=== PATIENT | female | born 1950 | race Caucasian/White ===

== ENCOUNTER 2020-07-31 11:04 | Inpatient (IN) | payer MEDICARE, OTHER, SELFPAY ==
[2020-07-31] VITALS (7 sets, daily range): BP systolic 140–182; BP diastolic 70–103; PULSE 69–95; RESP 16–19; TEMP 36.5–37; O2SAT 91–98; BMI 20.7
--- NOTE | 2020-07-31 11:29 | XR_ITS ---
WS: [id number] Exam: XR femur LT min 2V* [id number] Date/Time of Exam: 07/31/2020 12:00 PM Reason For Exam: fall There is a comminuted intertrochanteric fracture of the left hip. The remaining aspects of the femur are intact. Soft tissues are unremarkable. XR/XR femur LT min 2V* [id number] IMPRESSION: 1. Comminuted intertrochanteric fracture of the left femur. No other femoral fr actures were noted.
--- NOTE | 2020-07-31 11:29 | XR_ITS ---
WS: [id number] Exam: XR foot LT min 3V* [id number] Date/Time of Exam: 07/31/2020 12:00 PM Reason For Exam: fall No acute fracture or dislocation. Moderate DJD at the first MP joint. No radiopaque foreign bodies ar e identified. Degenerative changes in the midfoot joints. XR/XR foot LT min 3V* [id number] IMPRESSION: 1. Degenerative changes. No fracture or dislocation.
--- NOTE | 2020-07-31 11:29 | XR_ITS ---
WS: [id number] Exam: XR hip LT 2-3V wo/w pel* [id number] Date/Time of Exam: 07/31/2020 12:00 PM Reason For Exam: fall There is a comminuted intertrochanteric fracture of the left hip. The lesser trochanter is fractured. No dislocation noted. Mild degenerative change of the joint compartment. XR/XR hip LT 2-3V wo/w pel* [id number] IMPRESSION: 1. Comminuted intertrochanteric fracture of the left hip.
--- NOTE | 2020-07-31 11:30 | XR_ITS ---
WS: [id number] Exam: XR chest 1V portable [id number] Date/Time of Exam: 07/31/2020 12:00 PM Reason For Exam: hip fracture Comparison 04/02/2018. The lungs are clear and fully expanded. Normal cardiomediastinal structures and bony elements. Scatte red calcified granulomas. XR/XR chest 1V portable [id number] IMPRESSION: 1. No acute cardiopulmonary finding. No change.
--- NOTE | 2020-07-31 11:30 | ECG_ITS ---
[facility] Test Date: 2020-07-31 Pat Name: Zoila García Department: Room: Gender: Female Construction Inspector: : [id number] Requested By: Amy Irby Order Number: [id number] Latoya MD: Shira Charlton M.D. Measurements Intervals [place] Rate: 64 P: 81 GA: 170 QRS: 9 QRSD: 78 T: 42 QT: 373 QTc: 385 Interpretive Statements SINUS RHYTHM WITH SINUS ARRHYTHMIA No previous ECG available for comparison Electronically Signed On 07-31-2020 13:25:02 MANAGER WOMEN by Shira Charlton M.D. [id number]
[2020-07-31 11:46] LABS: Basophils # 0.1 10^3/uL (0.0-0.1); Basophils % 0.5 %; Eosinophils # 0.1 10^3/uL (0.0-0.8); Eosinophils % 1.5 %; Hematocrit 45.7 % (37.0-47.0); Hemoglobin 14.6 g/dL (11.5-15.3); Lymphocytes # 2.4 10^3/uL (0.8-4.8); Lymphocytes % 25.3 %; Mean Corpuscular HGB Conc 31.9 g/dL (30.0-36.0); Mean Corpuscular Hemoglobin 28.4 pg (28.0-34.0); Mean Corpuscular Volume 88.9 fL (81-99); Mean Platelet Volume 10.3 fL (7.4-10.4); Monocytes # 0.8 10^3/uL (0.2-0.9); Monocytes % 8.7 %; Neutrophils # 5.92 10^3/uL (1.8-7.7); Neutrophils % 63.3 %; Nucleated Red Blood Cells % 0 %; Platelet Count 558 10^3/cmm (130-400); Red Blood Count 5.14 10^6/uL (4.1-5.3); Red Cell Distribution Width 13.5 % (12.1-15.1); White Blood Count 9.4 10^3/uL (4.0-10.0)
[2020-07-31 12:05] LABS: Alanine Aminotransferase 33 U/L (0-33); Albumin Level 4.4 g/dL (3.5-5.2); Alkaline Phosphatase 131 IU/L (35-105); Aspartate Amino Transferase 38 U/L (0-32); Blood Urea Nitrogen 13 mg/dL (8-23); Calcium 10.2 mg/dL (8.5-10.5); Carbon Dioxide 25 mmol/L (22-29); Chloride 94 mmol/L (98-107); Creatinine Clr Calc Pharmacy 54.9642; Globulin 2.4 g/dL (1.3-4.6); Glucose 95 mg/dL (65-115); INR 0.97 (0.8-1.2); Osmolality Calculated 272 mOsm/kg (285-295); Sodium 131 mmol/L (136-145); Total Bilirubin 0.3 mg/dL (0.15-1.2); Total Protein 6.8 g/dL (6.6-8.7)
[2020-07-31] MEDS: morphine 4 mg/mL SDV 1 mL IVP ×2 (12:11→15:32)
[2020-07-31 12:13] LABS: Anion Gap 16.9 (5-19); Potassium 4.9 mmol/L (3.5-5.1)
--- NOTE | 2020-07-31 13:18 | P.CONIM_ITS ---
Providers/Reason For Consult Consulting Physican/Specialty*: hospitalist Reason for Consult*: left hip fracture Primary Care Provider: John Knapp DO History of Present Illness History of Present Illness Zoila García is a 70 year old female who was working in her garden fell and sustained a left hip fracture. Patient immediately felt pain when she fell localized to her left hip nothing made it better or worse she arrived at the ER x-rays were taken which showed a left intertrochanteric hip fracture Review of Systems Narrative: General ROS: negative for weight changes, fever ENT ROS: negative for nasal congestion, drainage or bleeding, sore throat, dysphagia or ear pain Eyes: PERRL Hematological and Lymphatic ROS: negative for swollen glands or abnormal bleeding Endocrine ROS: negative for polyuria/polydpsia or new changes in weight Respiratory ROS: negative for cough, shortness of breath, or wheezing Cardiovascular ROS: negative for chest pain or dyspnea on exertion Gastrointestinal ROS: negative for reflux, abdominal pain, change in bowel habits, or black or bloody stools Musculoskeletal ROS: negative for back pain, neck pain, or joint pain or swelling except for current problem Neurological ROS: negative for TIA or stoke symptoms Skin: no rashes Meds/Allergies Home Medications and Allergies Allergies Allergy/AdvReac Type Severity Reaction Status Date / Time oxycodone Allergy ADR-Vomitin Verified 07/31/20 11:14 g PFSH Acute PFSH: Medical History (Updated 07/31/20 @ 12:57 by Dinesh Rivera MD) HLD (hyperlipidemia) HTN (hypertension) Vitals/I&O/Wt Last Vital Signs Temp 97.7 F 07/31/20 11:05 Pulse 88 07/31/20 11:14 Resp 18 07/31/20 11:14 BP 168/88 07/31/20 11:14 Pulse Ox 97 07/31/20 11:14 Weight last 48 hrs Weight 121 lb Physical Exam Narrative: EXAM NARRATIVE: Left leg shortened and externally rotated. Neurovascular intact sensation is intact. No pain anywhere else except for the left hip. A&P Additional A&P Information Left IT fracture. Plan is to do a hip nail in the a.m. 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
--- NOTE | 2020-07-31 14:48 | P.HP_ITS ---
Providers/Chief Complaint Primary Care Provider: John Knapp DO Chief Complaint: l hip pain/ l ankle pain post fall History of Present Illness Very pleasant 70-year-old lady accompanied by her in ER, without much significant past medical history apart from hypertension, hyperlipidemia, states she is normally very active, exercises several times a week, tripped over rain gutter down spout today and fell down resulting in left intertrochanteric femoral fracture. We are asked to admit the patient for additional assessment and repair. She states that she is otherwise been at baseline state of health. She denies take any blood thinners, aspirin, or NSAIDs. She reports having history of diagnosis of mild emphysema, but states it has not been bothersome to her at all, has not been requiring any medications, or oxygen. She is noted to have mild hyponatremia, sodium 131. She does states she has been limiting salt intake. Also noted thrombocytosis, platelets 558, AST 38, alk phos 131. At home due to coronavirus. She states that she and her have been isolating Anytime she goes outside she wears a mask. She denies any symptoms of fever, chills, muscle aches, headache, she does get sometimes rhinorrhea, itchy eyes and intermittent cough due to allergies. She denies any loss of sense of smell, any nausea, vomiting or diarrhea. Coronavirus test is requested in the ER. Review of Systems Const: Denies: fever(s), chills, body aches or malaise Eyes: Denies: change in vision or eye redness ENMT: Denies: throat pain, oral sores or ear or mastoid pain Card: Denies: chest pain, edema, pre-syncope or dyspnea on exertion Resp: Denies: dyspnea, productive cough, change in phlegm color or hemoptysis GI: Denies: abdominal pain, nausea, vomiting, diarrhea, constipation, hematochezia or melena : Denies: flank pain, urinary frequency or hematuria Musc: Denies: back pain, joint swelling or joint redness Skin/Breast: Denies: rash, sores or new lesions Neuro: Denies: headache(s), numbness in extremities, weakness in extremities, dizziness, confusion or seizure-like activity Endo: Denies: polyuria or polydipsia Dm/Lymph: Denies: easy bleeding or purpura All/Imm: Denies: urticaria, throat swelling or tongue swelling Medications/Allergies Home Medications Medication Instructions Recorded Confirmed Last Taken Type lisinopril 10 mg PO DAILY 07/31/20 07/31/20 07/31/20 History metoprolol tartrate 25 mg PO BID 07/31/20 07/31/20 07/31/20 History [id number]-vit K 1 tab-cap PO DAILY 07/31/20 07/31/20 07/31/20 History [Multi For Her] simvastatin 20 mg PO DAILY 07/31/20 07/31/20 07/31/20 History vit [id number] 1 tab PO DAILY 07/31/20 07/31/20 07/31/20 History [Bioflex] Allergies Allergy/AdvReac Type Severity Reaction Status Date / Time oxycodone Allergy ADR-Vomitin Verified 07/31/20 11:14 g hydrocodone AdvReac Severe ADV-Weaknes Verified 07/31/20 14:42 s PFSH Acute PFSH: Medical History Emphysema of lung HLD (hyperlipidemia) HTN (hypertension) Surgical History H/O: hysterectomy History of appendectomy History of tonsillectomy Hx of cataract surgery Family History Mother Lymphoma Leukemia Father COPD (chronic obstructive pulmonary disease) Social History Smoking and tobacco status: former smoker Alcohol intake: never Substance/Drug Use: never Household members: spouse Marital status: Current occupational status: retired Vitals/I&O/Wt Last Vital Signs Temp 97.7 F 07/31/20 11:05 Pulse 87 07/31/20 13:14 Resp 18 07/31/20 13:14 BP 148/101 07/31/20 13:14 Pulse Ox 98 07/31/20 13:14 Weight last 48 hrs Weight 54.885 kg Physical Exam Const: COMMON NORMALS: no acute distress and patient oriented x3 HENMT: COMMON NORMALS: oropharynx normal Neck/C-Spine: COMMON NORMALS: no JVD Resp: COMMON NORMALS: normal respiratory effort and clear to auscultation bilaterally AUSCULTATION: clear to auscultation bilaterally Cardio: COMMON NORMALS: no JVD, regular rhythm, S1 normal heart sound present, S2 normal heart sound present and No murmurs present (Cardio) RHYTHM: regular rhythm HEART SOUNDS: S1 normal heart sound present and S2 normal heart sound present GI: COMMON NORMALS: Normal to inspection, nondistended, normoactive bowel sounds present, Soft to palpation and non-tender PALPATION: Yes Soft to palpation Extremity: COMMON NORMALS: no joint enlargement and no pedal edema NARRATIVE EXTREMITY EXAM: No ankle edema. Foot appears perfused. No bruising of left thigh, perhaps minimal swelling. OTHER: Everted L foot. Neuro: COMMON NORMALS: patient oriented x3 and moves all extremities Skin: COMMON NORMALS: no rashes or lesions noted GENERAL SKIN EXAM: no rashes or lesions noted Urinary Catheter Management^: Sheth: Cath Placed During This Visit: yes Reason for Continuing Indwelling Catheter: Required Immobilization for Trauma or Surgery or Anesthesia Urinary Catheter Date of Insertion: 07/31/20 Urinary Catheter Time of Insertion: 13:37 Data : 07/31/20 10:27 07/31/20 10:27 A&P Assessment and plan (1) Intertrochanteric fracture of left hip: Left intertrochanteric comminuted fracture of femur after mechanical fall. She would like to pursue surgical repair. Discussed with her risks of surgery which may be perhaps minimally higher than average given emphysema, although this is actually clinically mild, has not required any medication or oxygen. She is otherwise very active, states she exercises at least several times a week. Per discussion with orthopedics plan would be for surgical repair likely tomorrow morning. Okay for a dose of VTE prophylaxis in the intervening time. Her conditions do not appear to require additional optimization apart from perhaps we will hold metoprolol prior to surgery to avoid hypotension. Status: Acute (2) Hyponatremia: Mild hyponatremia sometimes may still minimally increased risk of falls. Discussed with her and her . She states has been trying to limit sodium intake, however, discussed with her this may have an unforeseen detrimental effect with perhaps somewhat increased risk of falling. May be worth to liberalize sodium intake. Will reassess sodium. Regular diet. N.p.o. after midnight. Status: Acute (3) Thrombocytosis: Mild thrombocytosis, platelets 558. She is not aware of prior issues with platelet levels. This may be stress related. Monitor. Follow-up levels after discharge. Status: Acute (4) Alkaline phosphatase elevation: Noted isolated alkaline phosphatase elevation, 131, minimal elevation of AST 38. For now we will hold statin, reassess. Check GGT. Possibly related to fracture. Follow-up with PCP. Status: Acute (5) Emphysema of lung: Noted, mild, not requiring medications or oxygen. Status: Acute (6) HTN (hypertension): Monitor. Status: Acute (7) HLD (hyperlipidemia): Status: Acute Attestations Medical Necessity Statement*: Admission of over 2 midnights is going to be needed for assessment of management of comminuted left hip fracture. Coding Level of Care Code Acute Sewage Disposal Worker for [facility] Fwd Diagnoses Intertrochanteric fracture of left hip S72.142A Hyponatremia E87.1 Thrombocytosis D47.3 Alkaline phosphatase elevation R74.8 Emphysema of lung J43.9 HTN (hypertension) I10 HLD (hyperlipidemia) E78.5
--- NOTE | 2020-07-31 15:00 | ED_ITS ---
HPI - Extremity Problem General: Chief complaint: Extremity Injury, Lower Stated complaint: l hip pain/ l ankle pain post fall Time Seen by Provider: 07/31/20 11:08 History of Present Illness: HPI Narrative: This patient is a very pleasant 70-year-old female who was out in her yard today. She tripped and fell onto her left hip. She has hip pain and foot pain. She thinks she twisted her foot as well. She is otherwise fairly healthy. She does have a history of high blood pressure and takes medicine for high cholesterol. She denies any other complaints. Complaint: extremity pain Onset (ago): hour(s) Pain Consistency: constant Location: left and lower extremity Severity scale (1-10): 5 (After pain medicine from EMS) Quality: aching and sharp Radiation: none Relieving factors: nothing Exacerbating factors: range of motion Associated symptoms: Deny chest pain, fever(s) or rash Review of Systems General: Reports: 10 or more systems reviewed and unremarkable except in HPI and below Const: Denies: fever(s), chills, fatigue or malaise Eyes: Denies: change in vision ENMT: Denies: odynophagia Card: Denies: chest pain or swelling of feet/ankles Resp: Denies: dyspnea, productive cough or non-productive cough GI: Denies: abdominal pain, nausea or vomiting : Denies: flank pain or difficulty voiding Musc: Denies: neck pain or back pain Skin/Breast: Denies: rash Neuro: Denies: headache(s), numbness in extremities or weakness in extremities Dm/Lymph: Denies: easy bruising or easy bleeding PFSH ED PFSH: Medical History Emphysema of lung HLD (hyperlipidemia) HTN (hypertension) Surgical History H/O: hysterectomy History of appendectomy History of tonsillectomy Hx of cataract surgery Family History Mother Lymphoma Leukemia Father COPD (chronic obstructive pulmonary disease) Social History Smoking and tobacco status: former smoker Alcohol intake: never Substance/Drug Use: never Household members: spouse Marital status: Current occupational status: retired Physical Exam Const: COMMON NORMALS: patient oriented x3, no limitations and alert GENERAL APPEARANCE: cooperative and comfortable HENMT: HEAD & SCALP: normal to inspection FACE & SINUS: normal facial exam Eye: GENERAL EYE: appearance normal, both eyes and all related structures Neck/C-Spine: COMMON NORMALS: supple, no meningeal signs and no JVD Chest: COMMONS NORMALS: normal inspection of the chest Resp: COMMON NORMALS: normal respiratory effort, No use of accessory muscles and clear to auscultation bilaterally AUSCULTATION: clear to auscultation bilaterally Cardio: COMMON NORMALS: no JVD, regular rate, regular rhythm and No murmurs present (Cardio) RATE: regular rate RHYTHM: regular rhythm GI: COMMON NORMALS: Normal to inspection, nondistended, normoactive bowel sounds present, Soft to palpation and non-tender INSPECTION: Yes normal to inspection AUSCULTATION: Yes normoactive bowel sounds PALPATION: Yes Soft to palpation Back/Pelvis: COMMON NORMALS: thoracic and lumbar spine normal to inspection Extremity: LEFT LOWER EXTREMITY: Yes hip joint (Pain with palpation. Unable to do any range of motion without severe pain.) and Yes foot & digits (Normal on exam however tender to palpation across the midfoot.) Neuro: COMMON NORMALS: patient oriented x3, moves all extremities, no focal motor deficits and no sensory deficits noted SENSORIUM/ORIENTATION: Yes alert MENINGEAL SIGNS: Yes no meningeal signs Psych: COMMON NORMALS: mental status grossly normal, cooperative and normal affect Skin: COMMON NORMALS: no rashes or lesions noted and turgor normal GENERAL SKIN EXAM: no rashes or lesions noted and turgor normal Course ED course: Patient with an intertrochanteric, comminuted left hip fracture. Foot appears normal. The rest of the femur appears normal. Pain controlled with IV pain meds. Will admit to the hospitalist with Dr. Weber's consult for s urgery tomorrow. Vital Signs: Vital signs: Vital Signs Temperature 97.7 F 07/31/20 11:05 Pulse Rate 87 07/31/20 13:14 Respiratory Rate 18 07/31/20 13:14 Blood Pressure 148/101 07/31/20 13:14 Pulse Oximetry 98 07/31/20 13:14 MDM - Extremity (Nontraumatic) Lab Data: Labs: Lab Results 07/31/20 07/31/20 07/31/20 Range/Units 10:27 10:27 10:27 WBC 9.4 (4.0-10.0) 10^3/ uL RBC 5.14 (4.1-5.3) 10^6/u L Hgb 14.6 (11.5-15.3) g/dL Hct 45.7 (37.0-47.0) % MCV 88.9 (81-99) fL MCH 28.4 (28.0-34.0) pg MCHC 31.9 (30.0-36.0) g/dL RDW 13.5 (12.1-15.1) % Plt Count 558 H (130-400) 10^3/c mm MPV 10.3 (7.4-10.4) fL Neut % (Auto) 63.3 % Lymph % (Auto) 25.3 % [place] % (Auto) 8.7 % Eos % (Auto) 1.5 % Baso % (Auto) 0.5 % Neut # (Auto) 5.92 (1.8-7.7) 10^3/u L Lymph # (Auto) 2.4 (0.8-4.8) 10^3/u L [place] # (Auto) 0.8 (0.2-0.9) 10^3/u L Eos # (Auto) 0.1 (0.0-0.8) 10^3/u L Baso # (Auto) 0.1 (0.0-0.1) 10^3/u L Nucleated RBC % (a uto) 0 % Nucleated RBCs # 0.0 /100WBC PT 13.20 (12.1-14.9) SECO NDS INR 0.97 (0.8-1.2) Sodium 131 L (136-145) mmol/L Potassium 4.9 (3.5-5.1) mmol/L Chloride 94 L (98-107) mmol/L Carbon Dioxide 25 (22-29) mmol/L Anion Gap 16.9 (5-19) BUN 13 (8-23) mg/dL Creatinine 0.8 (0.5-0.9) mg/dL GFR Calculation Not Reportable Glucose 95 (65-115) mg/dL Calculated Osmolal ity 272 L (285-295) mOsm/k g Calcium 10.2 (8.5-10.5) mg/dL Total Bilirubin 0.3 (0.15-1.2) mg/dL AST 38 H (0-32) U/L ALT 33 (0-33) U/L Alkaline Phosphata se 131 H (35-105) IU/L Total Protein 6.8 (6.6-8.7) g/dL Albumin 4.4 (3.5-5.2) g/dL Globulin 2.4 (1.3-4.6) g/dL Discharge Plan Discharge Prescriptions: No Action simvastatin 20 mg tablet 20 mg PO DAILY RF: 0 lisinopril 10 mg tablet 10 mg PO DAILY RF: 0 metoprolol tartrate 25 mg tablet 25 mg PO BID RF: 0 Multi For Her 18 mg iron-600 mcg-40 mcg Capsule 1 tab-cap PO DAILY RF: 0 Bioflex 579-18-32-40 mg Tablet 1 tab PO DAILY RF: 0 Coding Level of Care Code ED Marketing Information Coordinator for Chg Fwd Exam Comprehensive
[2020-07-31 15:24] LABS: Gamma Glutamyl Transferase 94 U/L (5-36)
[2020-07-31] MEDS: heparin 5,000 unit/mL INJ 1 mL 5000 UNIT SUBCUT (15:31)
[2020-07-31] MEDS: metoprolol tartrate 25 mg Tablet PO (17:40)
[2020-07-31] MEDS: acetaminophen 325 mg Tablet 650 MG PO (20:51)
[2020-07-31] MEDS: dextrose 5%-sod chloride 0.45% 1,000 ML 75 ML IV (22:37)
[2020-07-31] MEDS: HYDROmorphone 1 mg/mL INJ 1 mL 2 MG IVP (22:37)
[2020-07-31] MEDS: lidocaine 2% viscous 15 ML, aluminum-mag hydrox-simethicon 30 ML, sucralfate oral liq 1 GM PO (22:47)
[2020-07-31] MEDS: ondansetron 2 mg/ML SDV 2 mL 4 MG IVP (22:49)
[2020-08-01] VITALS (28 sets, daily range): BP systolic 125–209; BP diastolic 65–105; PULSE 64–107; RESP 12–18; TEMP 36.5–37.2; O2SAT 94–100
--- NOTE | 2020-08-01 | SCC_ITS ---
Procedure Done: left IM nail for Hip fracture 48.2 seconds of fluoroscopic guidance, for a cumulative dose of 2.6 mGy, was provided to Dr. Weber by the radiology department. C-arm images of the LEFT hip were saved for the patient's permanent record. [facility]
[2020-08-01] MEDS: pantoprazole 40 mg SDV IVP (04:41)
[2020-08-01 05:38] LABS: Basophils # 0.1 10^3/uL (0.0-0.1); Basophils % 0.4 %; Eosinophils % 0.2 %; Hematocrit 41.8 % (37.0-47.0); Hemoglobin 13.2 g/dL (11.5-15.3); Lymphocytes # 1.3 10^3/uL (0.8-4.8); Lymphocytes % 10.3 %; Mean Corpuscular HGB Conc 31.6 g/dL (30.0-36.0); Mean Corpuscular Hemoglobin 28.5 pg (28.0-34.0); Mean Corpuscular Volume 90.3 fL (81-99); Mean Platelet Volume 9.7 fL (7.4-10.4); Monocytes % 7.6 %; Neutrophils # 10.25 10^3/uL (1.8-7.7); Neutrophils % 81.3 %; Nucleated Red Blood Cells % 0 %; Platelet Count 413 10^3/cmm (130-400); Red Blood Count 4.63 10^6/uL (4.1-5.3); Red Cell Distribution Width 13.3 % (12.1-15.1); White Blood Count 12.6 10^3/uL (4.0-10.0)
[2020-08-01 06:15] LABS: Alanine Aminotransferase 24 U/L (0-33); Albumin Level 3.8 g/dL (3.5-5.2); Alkaline Phosphatase 108 IU/L (35-105); Anion Gap 13.9 (5-19); Aspartate Amino Transferase 25 U/L (0-32); Blood Urea Nitrogen 13 mg/dL (8-23); Calcium 9.3 mg/dL (8.5-10.5); Carbon Dioxide 27 mmol/L (22-29); Chloride 93 mmol/L (98-107); Creatinine Clr Calc Pharmacy 54.9642; Globulin 2.6 g/dL (1.3-4.6); Glucose 138 mg/dL (65-115); Osmolality Calculated 272 mOsm/kg (285-295); Potassium 3.9 mmol/L (3.5-5.1); Sodium 130 mmol/L (136-145); Total Bilirubin 0.5 mg/dL (0.15-1.2); Total Protein 6.4 g/dL (6.6-8.7)
--- NOTE | 2020-08-01 07:50 | ANES.PREANE2 ---
Pre-Anesthetic Assessment Pre-Anesthetic Assessment: Height/Weight: Height 1.63 m Weight 54.885 kg Temp Pulse Resp BP Pulse Ox 97.7 F 84 18 187/77 95 08/01/20 04:00 08/01/20 04:00 08/01/20 04:00 08/01/20 04:00 08/01/20 04:00 Preop Diagnosis: left IT fx Proposed Procedure: Operation Date: 08/01/20 09:05 Proposed Procedures p Trochanteric Femoral Nail(Left) - Douglas Weber, DO Familial anesthetic complications: None Was Beta Estrella taken within 24 hours: Yes Last intake: Intake Last Liquid Date 07/31/20 Last Liquid Time 23:59 Last Solid Date 07/31/20 Last Solid Time 17:00 Social: Social History: No alcohol and No tobacco Comment: former smoker Exam: Pre-Anes Outpt Exam: alert, oriented x 3, clear to auscultation bilaterally and regular rate & rhythm Airway: Cervical ROM: WNL MP: 1 Dentition: Other (missing teeth w/ permanent bridge) Pulmonary: Pulmonary: COPD (seen on imaging (mild) patient states it doesn't bother her or cause symptoms) CV/HEM: CV/HEM: HTN Comments: thrombocytosis (? transient) Metabolic: Metabolic: Hyperlipidemia Comments: mild hyponatremia Anesthetic Plan: ASA status: 2 Anesthesia: General Risk of > 500 ml blood loss (7ml/kg in children): No Meds/Allergies Current Medications: Current Medications Generic Name Dose Route Start Last Admin Trade Name Freq PRN Reason Stop Dose Admin Acetaminophen 650 mg 07/31/20 15:09 07/31/20 20:51 Acetaminophen 32 5 Mg Tablet PO 650 mg Q6H PRN Administration Mild/Mod Pain Or Temp >/= 101 Hydromorphone HCl 2 mg 07/31/20 21:51 07/31/20 22:37 Hydromorphone 1 Mg/Ml Inj 1 Ml IVP 2 mg Q4H PRN Administration pain Dextrose/Sodium Ch loride 1,000 mls @ 75 ml s/hr 07/31/20 22:00 07/31/20 22:37 Dextrose 5%-Sod Chloride 0.45% IV 75 mls/hr .[id number] CAITLIN Administration Ondansetron HCl 4 mg 07/31/20 15:09 07/31/20 22:49 Ondansetron 2 Mg /Ml Sdv 2 Ml IVP 4 mg Q8H PRN Administration vomiting, or N/V if npo Pantoprazole Sodiu m 40 mg 08/01/20 04:15 08/01/20 04:41 Pantoprazole 40 Mg Sdv IVP 40 mg DAILY CAITLIN Administration PFSH Anesthesia PFSH: Medical History Emphysema of lung HLD (hyperlipidemia) HTN (hypertension) Surgical History H/O: hysterectomy History of appendectomy History of tonsillectomy Hx of cataract surgery Family History Mother Lymphoma Leukemia Father COPD (chronic obstructive pulmonary disease) Social History Smoking and tobacco status: former smoker Alcohol intake: never Substance/Drug Use: never Household members: spouse Marital status: Current occupational status: retired Data Anesthesia CBC & Chem 7: 08/01/20 05:14 08/01/20 05:14 Other Labs: Laboratory Results - last 48 hr 07/31/20 07/31/20 07/31/20 10:27 10:27 10:27 WBC 9.4 RBC 5.14 Hgb 14.6 Hct 45.7 MCV 88.9 MCH 28.4 MCHC 31.9 RDW 13.5 Plt Count 558 H MPV 10.3 Neut % (Auto) 63.3 Lymph % (Auto) 25.3 [place] % (Auto) 8.7 Eos % (Auto) 1.5 Baso % (Auto) 0.5 Neut # (Auto) 5.92 Lymph # (Auto) 2.4 [place] # (Auto) 0.8 Eos # (Auto) 0.1 Baso # (Auto) 0.1 Nucleated RBC % (auto) 0 Nucleated RBCs # 0.0 PT 13.20 INR 0.97 Sodium 131 L Potassium 4.9 Chloride 94 L Carbon Dioxide 25 Anion Gap 16.9 BUN 13 Creatinine 0.8 GFR Calculation Not Reportable Glucose 95 Calculated Osmolality 272 L Calcium 10.2 Total Bilirubin 0.3 GGT AST 38 H ALT 33 Alkaline Phosphatase 131 H Total Protein 6.8 Albumin 4.4 Globulin 2.4 Blood Type Rho(D) Type Antibody Screen 07/31/20 07/31/20 08/01/20 10:27 14:15 05:14 WBC 12.6 H RBC 4.63 Hgb 13.2 Hct 41.8 MCV 90.3 MCH 28.5 MCHC 31.6 RDW 13.3 Plt Count 413 H MPV 9.7 Neut % (Auto) 81.3 Lymph % (Auto) 10.3 [place] % (Auto) 7.6 Eos % (Auto) 0.2 Baso % (Auto) 0.4 Neut # (Auto) 10.25 H Lymph # (Auto) 1.3 [place] # (Auto) 1.0 H Eos # (Auto) 0.0 Baso # (Auto) 0.1 Nucleated RBC % (auto) 0 Nucleated RBCs # 0.0 PT INR Sodium Potassium Chloride Carbon Dioxide Anion Gap BUN Creatinine GFR Calculation Glucose Calculated Osmolality Calcium Total Bilirubin GGT 94 H AST ALT Alkaline Phosphatase Total Protein Albumin Globulin Blood Type O Positive Rho(D) Type Positive Antibody Screen Negative 08/01/20 05:14 WBC RBC Hgb Hct MCV MCH MCHC RDW Plt Count MPV Neut % (Auto) Lymph % (Auto) [place] % (Auto) Eos % (Auto) Baso % (Auto) Neut # (Auto) Lymph # (Auto) [place] # (Auto) Eos # (Auto) Baso # (Auto) Nucleated RBC % (auto) Nucleated RBCs # PT INR Sodium 130 L Potassium 3.9 Chloride 93 L Carbon Dioxide 27 Anion Gap 13.9 BUN 13 Creatinine 0.8 GFR Calculation Not Reportable Glucose 138 H Calculated Osmolality 272 L Calcium 9.3 Total Bilirubin 0.5 GGT AST 25 ALT 24 Alkaline Phosphatase 108 H Total Protein 6.4 L Albumin 3.8 Globulin 2.6 Blood Type Rho(D) Type Antibody Screen Cardiac Studies: No Data to Display
--- NOTE | 2020-08-01 08:10 | W.PM.OPSUD ---
Surgery/Procedure H&P Update DATE OF PROCEDURE: August 01, 2020 DATE H&P PERFORMED: 07/31/20 H&P UPDATE INFORMATION: I have reviewed H&P completed within last 30 days, I have examined patient prior to procedure and No changes to prior documentation PREOP DIAGNOSIS: left IT fx PLANNED PROCEDURE: Operation Date: 08/01/20 09:05 Proposed Procedures p Trochanteric Femoral Nail(Left) - Douglas Weber DO
[2020-08-01] MEDS: sodium chloride 0.9% 1,000 ML 30 ML IV (08:15)
--- NOTE | 2020-08-01 10:11 | PM.OP ---
Operative Report Date of procedure: August 01, 2020 Pre-op Diagnosis: left IT fx Post-op diagnosis: same Procedure Done: left IM nail for Hip fracture Surgeon: Douglas Weber Anesthesia: General Estimated blood loss (mL): 25 Condition: stable Disposition: PACU Procedure: Patient was brought to the operative suite placed on the [place] table in the supine position all areas of impingement were well-padded patient was prepped and draped in sterile fashion skin was was made proximal to the greater trochanter. Starting pin is inserted opening reamer was inserted nail was inserted pin was inserted into the center center position of the femoral head measured to be 90 a size 90 lag screw was then inserted. After drilling. And then a distal locking screw was placed into the shaft of the nail. AP lateral fluoroscopy ensured that the hardware and fracture in appropriate alignment wounds were irrigated closed with Vicryl and diallo still dressings applied patient is transferred to the PACU in stable condition.
--- NOTE | 2020-08-01 10:23 | PM.PACU ---
PACU note PACU note: VSS, good respiratory effort Post-Anesthesia Exam: awake
[2020-08-01] MEDS: hyDRALAzine 20 mg/mL INJ 1 mL 5 MG IVP ×5 (10:32→14:07)
[2020-08-01] MEDS: fentaNYL 50 mcg/mL INJ 2mL IVP ×2 (10:37→10:45)
[2020-08-01] MEDS: ondansetron 2 mg/ML SDV 2 mL 4 MG IVP ×3 (10:50→17:45)
[2020-08-01] MEDS: metoclopramide 5 mg/mL SDV 2 mL 10 MG IVP (11:02)
[2020-08-01] MEDS: TRAMadol 50 mg Tablet PO ×2 (12:44→21:36)
--- NOTE | 2020-08-01 13:40 | PC.CHAP ---
Pastoral Care Encounter/Spiritual Assessment Type of Contact [] Declined church business administrator visit [] Patient/Family/Request visit [] Outpatient visit [] Follow-up visit [] Physician referral [] Code/Alert [x] Routine visit [] Staff referral [] Actively dying [] Patient sleeping [] Family support [] [] Out of room [] Palliative care [] [] Receiving care in room [] Pre-surgical visit [] Trauma [] Long length of stay [] ICU visit [] Other: Relational/Emotional Strength [] Patient feels connected with others/family/visitors/staff [] Distress [] Loneliness/isolation [] Abandonment Spirituality of Patient [] Person of Charley [] Attends Taoism of their Charley [] Believes in Prayer [] Reads Bible or Temple materials [] There are Spiritual issues to be addressed Data Warehouse Analyst Interventions [] Prayer [] Active listening [] Non-anxious presence [] Spiritual/emotional support [] Crisis/trauma care [] Spiritual counseling [] Bereavement support [] Provided bereavement packet [] Provided Bible/devotional materials [] Provided toy/stuffed animal, coloring book to patient or family member [] Provided Communion [] Anointing/[place] [] Salvation [] Completed spiritual assessment [] Other: Impact on Illness or Injury [] Angry [] Fearful [] Anxious [] Often cries [] Exhaustion [] Unable to work [] Unable to attend sikh [] Unable to walk/stand [] Unable to read [] Unable to drive [] Unable to eat/drink [] Unable to sleep [] Unable to be with family [] Patient intubated [] Other: Summary Time spent with patient
[2020-08-01] MEDS: HYDROmorphone 1 mg/mL INJ 1 mL 2 MG IVP (15:35)
--- NOTE | 2020-08-01 17:05 | P.PN_ITS ---
Subjective Subjective: Interval history: She is doing well postoperatively. Is not particularly bothered by pain in the left hip. Denies chest pain. Says has no trouble breathing. Vitals/I&O/Wt Last Vital Signs Temp 98.4 F 08/01/20 15:37 Pulse 107 H 08/01/20 15:37 Resp 16 08/01/20 15:37 BP 179/71 08/01/20 15:37 Pulse Ox 98 08/01/20 15:37 08/01/20 08/01/20 08/01/20 06:59 14:59 22:59 Intake Total 1300 / 1300 Output Total 1000 / 1000 200 / 200 Balance -1000 / -1000 1100 / 1100 Weight last 48 hrs Weight 54.885 kg Physical Exam Const: COMMON NORMALS: no acute distress, patient oriented x3 and alert GENERAL APPEARANCE: cooperative ORIENTATION/CONSCIOUSNESS: Yes awake HENMT: COMMON NORMALS: oropharynx normal Neck/C-Spine: COMMON NORMALS: no JVD Resp: COMMON NORMALS: normal respiratory effort and clear to auscultation bilaterally AUSCULTATION: clear to auscultation bilaterally Cardio: COMMON NORMALS: no JVD, regular rhythm, S1 normal heart sound present, S2 normal heart sound present and No murmurs present (Cardio) RHYTHM: regular rhythm HEART SOUNDS: S1 normal heart sound present and S2 normal heart sound present GI: COMMON NORMALS: Normal to inspection, nondistended, normoactive bowel sounds present, Soft to palpation and non-tender PALPATION: Yes Soft to palpation Extremity: COMMON NORMALS: no joint enlargement and no pedal edema NARRATIVE EXTREMITY EXAM: Cold pack on left thigh, clean dressings, no bleeding or strikethrough. No ankle edema. Foot well perfused. Neuro: COMMON NORMALS: patient oriented x3 and moves all extremities SENSORIUM/ORIENTATION: Yes alert Skin: COMMON NORMALS: no rashes or lesions noted GENERAL SKIN EXAM: no rashes or lesions noted Urinary Catheter Management^: Sheth: Cath Placed During This Visit: yes Reason for Continuing Indwelling Catheter: Required Immobilization for Trauma or Surgery or Anesthesia Urinary Catheter Date of Insertion: 07/31/20 Urinary Catheter Time of Insertion: 13:37 Data : 08/01/20 05:14 08/01/20 05:14 A&P Assessment and plan (1) Intertrochanteric fracture of left hip: She is doing well postoperatively. Monitor. Lovenox VT prophylaxis. Lisinopril and Toprol have been resumed. Remove Sheth tomorrow. PT/OT. Status: Acute (2) Hyponatremia: Liberalize sodium intake, recheck sodium. Mild hyponatremia sometimes may still minimally increased risk of falls. Discussed with her and her . She states has been trying to limit sodium intake, however, discussed with her this may have an unforeseen detrimental effect with perhaps somewhat increased risk of falling. Status: Acute (3) Thrombocytosis: Improved. She is not aware of prior issues with platelet levels. This may be stress related. Monitor. Follow-up levels after discharge. Status: Acute (4) Alkaline phosphatase elevation: Better. Noted isolated alkaline phosphatase elevation, 131, minimal elevation of AST 38. For now we will hold statin, reassess. Elevated GGT. Normal Tbili. Follow-up with PCP. May benefit from nonurgent biliary imaging. Status: Acute (5) Emphysema of lung: Noted, mild, not requiring medications or oxygen. Status: Acute (6) HTN (hypertension): Monitor. Status: Acute (7) HLD (hyperlipidemia): Status: Acute Attestations Medical Necessity Statement*: Continue assessment following fracture and repair. Coding Level of Care Code Acute Supervisor Aircraft Cleaning for Chg Fwd Diagnoses Intertrochanteric fracture of left hip S72.142A Hyponatremia E87.1 Thrombocytosis D47.3 Alkaline phosphatase elevation R74.8 Emphysema of lung J43.9 HTN (hypertension) I10 HLD (hyperlipidemia) E78.5
--- NOTE | 2020-08-01 17:05 | XR_ITS ---
WS: [id number] XR hip LT 2-3V wo/w pel* [id number] REASON FOR EXAM: HIP REPAIR FINDINGS: Intramedullary monique and femoral nail fixation of left intertrochanteric fracture of the proximal left femur. Bony structure and surgical appliance appear in proper position and alignment. XR/XR hip LT 2-3V wo/w pel* [id number] IMPRESSION: Fixation of left proximal femur fracture as above.
[2020-08-01] MEDS: ceFAZolin 1,000 MG in sodium chloride 0.9% (plus) 50 ML 100 MG IV (17:45)
[2020-08-01] MEDS: metoprolol tartrate 25 mg Tablet PO (17:46)
[2020-08-01] MEDS: enoxaparin 40 mg/0.4 mL Syringe SUBCUT (21:09)
[2020-08-02] VITALS (8 sets, daily range): BP systolic 156–171; BP diastolic 61–83; PULSE 72–92; RESP 16–18; TEMP 36.5–37.8; O2SAT 94–100
[2020-08-02] MEDS: ondansetron 2 mg/ML SDV 2 mL 4 MG IVP ×2 (00:35→08:01)
[2020-08-02] MEDS: HYDROmorphone 1 mg/mL INJ 1 mL 2 MG IVP (00:36)
[2020-08-02] MEDS: ceFAZolin 1,000 MG in sodium chloride 0.9% (plus) 50 ML 100 MG IV ×2 (01:20→10:30)
[2020-08-02] MEDS: dextrose 5%-sod chloride 0.45% 1,000 ML 75 ML IV (01:20)
[2020-08-02] MEDS: TRAMadol 50 mg Tablet PO (08:01)
[2020-08-02] MEDS: pantoprazole 40 mg SDV IVP (08:01)
[2020-08-02] MEDS: lisinopril 10 mg Tablet PO (08:02)
[2020-08-02] MEDS: metoprolol tartrate 25 mg Tablet PO ×2 (08:02→18:08)
[2020-08-02] MEDS: atorvastatin 40 mg Tablet 10 MG PO (08:02)
--- NOTE | 2020-08-02 08:37 | ANE.PACU2 ---
Inpatient post-anesthesia follow up: Airway intact: Yes Vital signs: Temperature 98.5 F Pulse Rate [Monito r] 69 Pulse Rate 92 Respiratory Rate 17 Blood Pressure [Le ft Arm] 140/103 Blood Pressure 159/67 Pulse Oximetry 100 Oxygen Delivery Me thod Nasal Cannula Oxygen Flow Rate 2 Fraction of Inspir ed Oxygen Hydration adequate: Yes Nausea and vomiting: No Pain level: 2 Mental status: Baseline
--- NOTE | 2020-08-02 09:09 | P.PN_ITS ---
Subjective Subjective: Interval history: Patient doing well pain controlled. Vitals/I&O/Wt Last Vital Signs Temp 98.5 F 08/02/20 07:14 Pulse 72 08/02/20 08:56 Resp 16 08/02/20 08:56 BP 159/67 08/02/20 07:14 Pulse Ox 98 08/02/20 08:56 08/01/20 08/02/20 08/02/20 22:59 06:59 14:59 Intake Total 170 / 1470 180 / 1650 Output Total 125 / 325 400 / 725 Balance 45 / 1145 -220 / 925 Weight last 48 hrs Weight 121 lb Physical Exam Narrative: EXAM NARRATIVE: Dressing clean dry and intact. Able to wiggle toes sensation is intact. Urinary Catheter Management^: Sheth: Cath Placed During This Visit: yes, but has since been removed by the nurse Reason for Continuing Indwelling Catheter: Decision to DC Catheter Urinary Catheter Date of Insertion: 07/31/20 Urinary Catheter Time of Insertion: 13:37 Date Urinary Catheter Removed: 08/02/20 Time Urinary Catheter Discontinued: 08:59 Data : 08/01/20 05:14 08/01/20 05:14 A&P Additional A&P Information Postop day #1 left hip nail. Plan is to get up with physical therapy DC her Sheth Attestations Medical Necessity Statement*: medicare Coding Level of Care Code Acute Manager Business Operations for Marilynn Lara
[2020-08-02 09:11] LABS: Basophils % 0.3 %; Eosinophils % 0.2 %; Hematocrit 40.5 % (37.0-47.0); Hemoglobin 12.6 g/dL (11.5-15.3); Lymphocytes % 6.5 %; Mean Corpuscular HGB Conc 31.1 g/dL (30.0-36.0); Mean Corpuscular Hemoglobin 28.3 pg (28.0-34.0); Mean Corpuscular Volume 90.8 fL (81-99); Mean Platelet Volume 9.9 fL (7.4-10.4); Monocytes # 1.2 10^3/uL (0.2-0.9); Neutrophils # 12.95 10^3/uL (1.8-7.7); Neutrophils % 84.7 %; Nucleated Red Blood Cells % 0 %; Platelet Count 371 10^3/cmm (130-400); Red Blood Count 4.46 10^6/uL (4.1-5.3); Red Cell Distribution Width 13.6 % (12.1-15.1); White Blood Count 15.3 10^3/uL (4.0-10.0)
[2020-08-02 10:08] LABS: Alanine Aminotransferase 20 U/L (0-33); Albumin Level 3.3 g/dL (3.5-5.2); Alkaline Phosphatase 97 IU/L (35-105); Anion Gap 11.9 (5-19); Aspartate Amino Transferase 24 U/L (0-32); Blood Urea Nitrogen 9 mg/dL (8-23); Calcium 8.7 mg/dL (8.5-10.5); Carbon Dioxide 26 mmol/L (22-29); Chloride 94 mmol/L (98-107); Creatinine Clr Calc Pharmacy 54.9642; Globulin 2.8 g/dL (1.3-4.6); Glucose 121 mg/dL (65-115); Osmolality Calculated 266 mOsm/kg (285-295); Potassium 3.9 mmol/L (3.5-5.1); Sodium 128 mmol/L (136-145); Total Bilirubin 0.5 mg/dL (0.15-1.2); Total Protein 6.1 g/dL (6.6-8.7)
--- NOTE | 2020-08-02 11:41 | PM.PN ---
Subjective Subjective: Interval history: States she is doing quite all right. Intends to further work with physical therapy. Plans to return home. Vitals/I&O/Wt Last Vital Signs Temp 99.0 F 08/02/20 11:31 Pulse 75 08/02/20 11:31 Resp 17 08/02/20 11:31 BP 156/61 08/02/20 11:31 Pulse Ox 98 08/02/20 11:31 08/01/20 08/02/20 08/02/20 22:59 06:59 14:59 Intake Total 170 / 1470 230 / 1700 360 / 360 Output Total 125 / 325 400 / 725 Balance 45 / 1145 -170 / 975 360 / 360 Physical Exam Const: COMMON NORMALS: no acute distress, patient oriented x3 and alert GENERAL APPEARANCE: cooperative ORIENTATION/CONSCIOUSNESS: Yes awake HENMT: COMMON NORMALS: oropharynx normal Neck/C-Spine: COMMON NORMALS: no JVD Resp: COMMON NORMALS: normal respiratory effort and clear to auscultation bilaterally AUSCULTATION: clear to auscultation bilaterally Cardio: COMMON NORMALS: no JVD, regular rhythm, S1 normal heart sound present, S2 normal heart sound present and No murmurs present (Cardio) RHYTHM: regular rhythm HEART SOUNDS: S1 normal heart sound present and S2 normal heart sound present GI: COMMON NORMALS: Normal to inspection, nondistended, normoactive bowel sounds present, Soft to palpation and non-tender PALPATION: Yes Soft to palpation Extremity: COMMON NORMALS: no joint enlargement and no pedal edema NARRATIVE EXTREMITY EXAM: L thigh dressing. No ankle edema. Foot well perfused. Neuro: COMMON NORMALS: patient oriented x3 and moves all extremities SENSORIUM/ORIENTATION: Yes alert Skin: COMMON NORMALS: no rashes or lesions noted GENERAL SKIN EXAM: no rashes or lesions noted Urinary Catheter Management^: Sheth: Cath Placed During This Visit: yes, but has since been removed by the nurse Reason for Continuing Indwelling Catheter: Decision to DC Catheter Urinary Catheter Date of Insertion: 07/31/20 Urinary Catheter Time of Insertion: 13:37 Date Urinary Catheter Removed: 08/02/20 Time Urinary Catheter Discontinued: 08:59 Data : 08/02/20 08:39 08/02/20 08:39 A&P Assessment and plan (1) Intertrochanteric fracture of left hip: Doing well postoperatively. Hb with minimal decrease. PT. DC Sheth. DC planning. Wants to return home. Lovenox VT prophylaxis. Status: Acute (2) Hyponatremia: Sodium is worse. DC D5-0.45 NS. Liberalize sodium intake. Mild hyponatremia sometimes may still minimally increased risk of falls. Discussed with her and her . She states has been trying to limit sodium intake, however, discussed with her this may have an unforeseen detrimental effect with perhaps somewhat increased risk of falling. Follow up with PCP. Status: Acute (3) Thrombocytosis: Resolved. Suspect was stress related. She is not aware of prior issues with platelet levels. This may be stress related. Monitor. Follow-up levels after discharge. Status: Acute (4) Alkaline phosphatase elevation: Better. Noted isolated alkaline phosphatase elevation, 131, minimal elevation of AST 38. For now we will hold statin, reassess. Elevated GGT. Normal Tbili. Follow-up with PCP. May benefit from nonurgent biliary imaging. Status: Acute (5) Emphysema of lung: Noted, mild, not requiring medications or oxygen. Status: Acute (6) HTN (hypertension): Monitor. Status: Acute (7) HLD (hyperlipidemia): Status: Acute Attestations Medical Necessity Statement*: Continue admission for postoperative management after left hip fracture and repair, disposition planning. Coding Level of Care Code Acute Solvent Recoverer for Chg Fwd Diagnoses Intertrochanteric fracture of left hip S72.142A Hyponatremia E87.1 Thrombocytosis D47.3 Alkaline phosphatase elevation R74.8 Emphysema of lung J43.9 HTN (hypertension) I10 HLD (hyperlipidemia) E78.5
[2020-08-02] MEDS: enoxaparin 40 mg/0.4 mL Syringe SUBCUT (23:36)
[2020-08-03 02:59] LABS: Coronavirus Lab Test PTC Negative
[2020-08-03 04:00] VITALS: BP 179/79; PULSE 99; RESP 17; TEMP 36.8; O2SAT 97
[2020-08-03 05:55] LABS: Basophils % 0.2 %; Eosinophils # 0.1 10^3/uL (0.0-0.8); Eosinophils % 0.5 %; Hematocrit 35.9 % (37.0-47.0); Hemoglobin 11.3 g/dL (11.5-15.3); Lymphocytes # 1.3 10^3/uL (0.8-4.8); Lymphocytes % 9.9 %; Mean Corpuscular HGB Conc 31.5 g/dL (30.0-36.0); Mean Corpuscular Volume 89.1 fL (81-99); Mean Platelet Volume 9.6 fL (7.4-10.4); Monocytes # 1.1 10^3/uL (0.2-0.9); Monocytes % 8.4 %; Neutrophils % 80.7 %; Nucleated Red Blood Cells % 0 %; Platelet Count 358 10^3/cmm (130-400); Red Blood Count 4.03 10^6/uL (4.1-5.3); Red Cell Distribution Width 13.2 % (12.1-15.1); White Blood Count 13.1 10^3/uL (4.0-10.0)
[2020-08-03 07:23] VITALS: BP 177/81; PULSE 98; RESP 18; TEMP 37.2; O2SAT 96
--- NOTE | 2020-08-03 07:45 | P.PN_ITS ---
Subjective Subjective: Interval history: Patient doing well pain controlled. Vitals/I&O/Wt Last Vital Signs Temp 99 F 08/03/20 07:23 Pulse 98 08/03/20 07:23 Resp 18 08/03/20 07:23 BP 177/81 08/03/20 07:23 Pulse Ox 96 08/03/20 07:23 08/02/20 08/03/20 08/03/20 22:59 06:59 14:59 Intake Total 1120 / 1480 240 / 1720 Output Total 500 / 500 Balance 1120 / 1480 240 / 1720 -500 / -500 Physical Exam 2 Narrative: EXAM NARRATIVE: 5-5 strength bilateral lower extremities wound clean dry and intact. Urinary Catheter Management^: Sheth: Cath Placed During This Visit: yes, but has since been removed by the nurse Reason for Continuing Indwelling Catheter: Decision to DC Catheter Urinary Catheter Date of Insertion: 07/31/20 Urinary Catheter Time of Insertion: 13:37 Date Urinary Catheter Removed: 08/02/20 Time Urinary Catheter Discontinued: 08:59 Data : 08/03/20 05:40 08/02/20 08:39 A&P Additional A&P Information Okay to discharge home from orthopedic standpoint if able to get around with physical therapy and they feel that she is stable to go home. She should go home on 30 days of Lovenox. Follow-up in the clinic in 2 weeks for staple removal. Attestations Medical Necessity Statement*: Pain control Coding Level of Care Code Acute Soda Room Operator for Marilynn Lara
[2020-08-03] MEDS: metoprolol tartrate 25 mg Tablet PO (08:10)
[2020-08-03] MEDS: lisinopril 10 mg Tablet PO (08:10)
[2020-08-03] MEDS: atorvastatin 40 mg Tablet 10 MG PO (08:10)
[2020-08-03] MEDS: pantoprazole 40 mg SDV IVP (08:10)
--- NOTE | 2020-08-03 10:04 | DCPLANNER ---
Pg 2 of IM updated and explained to pt. She was unfamiliar with the IM, appreciates the explanation but is hoping that she'll be d/c'd today. Copy provided.
[2020-08-03 11:17] VITALS: BP 185/77; PULSE 92; RESP 19; TEMP 37.2; O2SAT 97
--- NOTE | 2020-08-03 13:32 | PM.DCS ---
Discharge Providers Date of Admission: 07/31/20 12:54 Date of Discharge: August 03, 2020 Attending Provider at Admission: Dinesh Rivera Attending Provider at Discharge: Gloria Gomez MD Consults: Dr Weber, Orthopedics Primary Care Provider: John Knapp DO Diagnoses at Discharge Discharge Diagnosis (1) Intertrochanteric fracture of left hip: Status: Acute Qualifiers: Encounter type: initial encounter Fracture alignment: nondisplaced Fracture type: closed Qualified Code(s): S72.145A - Nondisplaced intertrochanteric fracture of left femur, initial encounter for closed fracture (2) Status post hip surgery: Status: Acute Permanent problem details: IM nail left hip, Dr Weber (3) Hyponatremia: Status: Acute (4) Thrombocytosis: Status: Resolved (5) Alkaline phosphatase elevation: Status: Resolved (6) Emphysema of lung: Status: Chronic Qualifiers: Emphysema type: unspecified Qualified Code(s): J43.9 - Emphysema, unspecified (7) HTN (hypertension): Status: Chronic Qualifiers: Hypertension type: essential hypertension Qualified Code(s): I10 - Essential (primary) hypertension (8) HLD (hyperlipidemia): Status: Chronic Qualifiers: Hyperlipidemia type: unspecified Qualified Code(s): E78.5 - Hyperlipidemia, unspecified Reason for Visit Reason for Visit: hip pain/ankle pain post fall Hospital Course Hospital Course Mrs García presented after tripping over a rain gutter and falling down. She sustained a left intertrochanteric hip fracture. She was admitted to the hospitalist service and orthopedics was consulted. She underwent IM nail to the left hip on August 01. She did well postoperatively and will be going home with home health. Arrangements were made for a walker and she received instructions on getting around her home from physical therapy as well as myself. During the course of the hospital stay she did have some thrombocytosis that resolved. Alkaline phosphatase was noted to be elevated and also resolved. She also had some persistent hyponatremia with sodiums running 128-130. Suspect in part due to fluids administered. Blood pressures were stable as well as her respiratory status. Prescriptions were provided for Lovenox and some tramadol and Tylenol. She was not requiring much in the way of pain medicines. Other home medications were continued. She is to see Dr. Weber in 2 weeks. Recommend follow-up with primary care provider to reevaluate laboratory abnormalities in a couple of weeks. Patient did have a catheter during the hospital stay but it was removed. She was felt in stable condition for discharge home with home health. Physical Exam Const: OTHER: Alert, oriented x3, cooperative Resp: OTHER: Clear to auscultation bilaterally Cardio: OTHER: Regular rate and rhythm Extremity: NARRATIVE EXTREMITY EXAM: Dressings intact, moving around well for current postop day Neuro: OTHER: Face symmetric, speech clear, moves all extremities Urinary Catheter Management^: Sheth: Cath Placed During This Visit: yes, but has since been removed by the nurse Reason for Continuing Indwelling Catheter: Decision to DC Catheter Urinary Catheter Date of Insertion: 07/31/20 Urinary Catheter Time of Insertion: 13:37 Date Urinary Catheter Removed: 08/02/20 Time Urinary Catheter Discontinued: 08:59 Discharge Data Data Completed and Pending: Completed Studies During Hospitalization Category Date Time Status XR chest 1V sheila ble [id number] Stat Exams 07/31/20 11:30 Completed XR femur LT min 2 V* [id number] Stat Exams 07/31/20 11:29 Completed XR foot LT min 3V * [id number] Stat Exams 07/31/20 11:29 Completed XR hip LT 2-3V wo /w pel* [id number] Rout ine Exams 08/01/20 17:05 Completed XR hip LT 2-3V wo /w pel* [id number] Stat Exams 07/31/20 11:29 Completed Laboratory Last Values WBC 13.1 10^3/uL (4.0 -10.0) H 08/03/20 05:40 RBC 4.03 10^6/uL (4.1 -5.3) L 08/03/20 05:40 Hgb 11.3 g/dL (11.5-1 5.3) L 08/03/20 05:40 Hct 35.9 % (37.0-47.0 ) L 08/03/20 05:40 MCV 89.1 fL (81-99) 08/03/20 05:40 MCH 28.0 pg (28.0-34. 0) 08/03/20 05:40 MCHC 31.5 g/dL (30.0-3 6.0) 08/03/20 05:40 RDW 13.2 % (12.1-15.1 ) 08/03/20 05:40 Plt Count 358 10^3/cmm (130 -400) 08/03/20 05:40 MPV 9.6 fL (7.4-10.4) 08/03/20 05:40 Neut % (Auto) 80.7 % 08/03/20 05:40 Lymph % (Auto) 9.9 % 08/03/20 05:40 Toombs % (Auto) 8.4 % 08/03/20 05:40 Eos % (Auto) 0.5 % 08/03/20 05:40 Baso % (Auto) 0.2 % 08/03/20 05:40 Neut # (Auto) 10.60 10^3/uL (1. 8-7.7) H 08/03/20 05:40 Lymph # (Auto) 1.3 10^3/uL (0.8- 4.8) 08/03/20 05:40 [place]ombs # (Auto) 1.1 10^3/uL (0.2- 0.9) H 08/03/20 05:40 Eos # (Auto) 0.1 10^3/uL (0.0- 0.8) 08/03/20 05:40 Baso # (Auto) 0.0 10^3/uL (0.0- 0.1) 08/03/20 05:40 Nucleated RBC % (a uto) 0 % 08/03/20 05:40 Nucleated RBCs # 0.0 /100WBC 08/03/20 05:40 PT 13.20 SECONDS (12 .1-14.9) 07/31/20 10:27 INR 0.97 (0.8-1.2) 07/31/20 10:27 Sodium Cancelled 08/03/20 05:40 Potassium Cancelled 08/03/20 05:40 Chloride Cancelled 08/03/20 05:40 Carbon Dioxide Cancelled 08/03/20 05:40 Anion Gap Cancelled 08/03/20 05:40 BUN Cancelled 08/03/20 05:40 Creatinine Cancelled 08/03/20 05:40 GFR Calculation Cancelled 08/03/20 05:40 Glucose Cancelled 08/03/20 05:40 Calculated Osmolal ity Cancelled 08/03/20 05:40 Calcium Cancelled 08/03/20 05:40 Total Bilirubin Cancelled 08/03/20 05:40 GGT 94 U/L (5-36) H 07/31/20 10:27 AST Cancelled 08/03/20 05:40 ALT Cancelled 08/03/20 05:40 Alkaline Phosphata se Cancelled 08/03/20 05:40 Total Protein Cancelled 08/03/20 05:40 Albumin Cancelled 08/03/20 05:40 Globulin Cancelled 08/03/20 05:40 Nasal/Oral COVID-1 9 PCR Negative 07/31/20 11:59 Blood Type O Positive 07/31/20 14:15 Rho(D) Type Positive 07/31/20 14:15 Antibody Screen Negative 07/31/20 14:15 Laboratory Tests 08/02/20 08:39 Sodium 128 L Potassium 3.9 Chloride 94 L Carbon Dioxide 26 BUN 9 Creatinine 0.8 Glucose 121 H Calcium 8.7 Total Bilirubin 0.5 AST 24 ALT 20 Alkaline Phosphata se 97 Total Protein 6.1 L Albumin 3.3 L Globulin 2.8 Laboratory Tests 07/31/20 08/01/20 08/02/20 10:27 05:14 08:39 Sodium 131 L 130 L 128 L Vitals: Last Vital Signs Temp 98.9 F 08/03/20 11:17 Pulse 92 08/03/20 11:17 Resp 19 H 08/03/20 11:17 BP 185/77 08/03/20 11:17 Pulse Ox 97 08/03/20 11:17 Discharge Plan Discharge Patient Disposition: Home Health Service Condition: Stable Prescriptions: New acetaminophen 325 mg Tablet 650 mg PO Q6H PRN (Reason: mild to moderate pain) Qty: 100 RF: 0 tramadol 50 mg Tablet 50 mg PO Q4H PRN (Reason: moderate to severe pain) Qty: 20 RF: 0 enoxaparin 40 mg/0.4 mL Syringe 40 mg SUBCUT Q24H Qty: 30 RF: 0 Continued simvastatin 20 mg tablet 20 mg PO DAILY RF: 0 lisinopril 10 mg tablet 10 mg PO DAILY RF: 0 metoprolol tartrate 25 mg tablet 25 mg PO BID RF: 0 Multi For Her 18 mg iron-600 mcg-40 mcg Capsule 1 tab-cap PO DAILY RF: 0 Bioflex 278-41-15-40 mg Tablet 1 tab PO DAILY RF: 0 Discharge Orders: Discharge Order (Routine); Ordered 08/03/20 Ordered By: Gloria Gomez Other Ambulatory Orders: DME: Walker (Order) Location: None Selected Ordered By: Gloria Gomez Referrals: [facility] [place] [Outside] [facility] [Outside] Douglas Weber DO [Physician] - 08/18/20 10:00 am (Follow up with Dr Weber August 18 at 10:00 am) John Knapp DO [Primary Care Provider] - 08/10/20 10:30 am (Follow up with John Knapp on August 10 at 10:30 am) Discharge Diet: Advance as tolerated Discharge Activity: As per PT/OT instructions Patient Instructions: Tramadol (By mouth), Enoxaparin (Injection), COPD - Emphysema, How to Give a Subcutaneous Injection (GEN), Precautions after Total Joint Replacement Surgery (GEN) Activity Restrictions/Additional Instructions: Follow instructions as per Dr Weber as well as physical and occupational therapy Use walker as directed Enoxaparin is for prevention of blood clots after surgery Use tylenol and tramadol for pain control Discharge Attestations Time Spent in Discharge Care*: greater than 30 min Specific Discharge Activities: educating patient, discussing with onsite case manager/social workers/dc planners, documenting/other paperwork and evaluating patient/reviewing data Status at Discharge: Cognitive status at discharge: cognitively intact, Behavioral status at discharge: cooperative, Functional status at discharge: uses cane/walker Overall status at discharge: patient is not back to baseline Quality Metrics Clinical Quality Measures During this hospital stay, did patient experience: None Coding Level of Care Code Acute Administrative Library Assistant for [facility] Fwd Diagnoses Intertrochanteric fracture of left hip S72.145A Encounter type: initial encounter Fracture alignment: nondisplaced Fracture type: closed Status post hip surgery Z98.890 Hyponatremia E87.1 Thrombocytosis D47.3 Alkaline phosphatase elevation R74.8 Emphysema of lung J43.9 Emphysema type: unspecified HTN (hypertension) I10 Hypertension type: essential hypertension HLD (hyperlipidemia) E78.5 Hyperlipidemia type: unspecified
[2020-08-03 15:57] VITALS: BP 185/77; PULSE 92; RESP 19; TEMP 37.2; O2SAT 97
--- NOTE | 2020-08-04 14:25 | PC.RESP ---
PULMONARY REHAB INFORMATION SENT TO PATIENT.
== END 2020-08-03 15:58 | disposition home health service (06) | DRG 481 ==
LOC: ER 14:36 → MEDSURG 17:35
PROVIDERS: Orthopaedic Surgery; Admitting Provider Internal Medicine; Emergency Provider Emergency Medicine; PCP Family Medicine; Visit Provider Hospitalist
PROC: 0QS706Z Reposition Left Upper Femur with Intramedullary Internal Fixation Device, Open Approach (ICD-10-PCS; CPT 27245; principal; 2020-08-01 09:05)
DX: S72.142A Displaced intertrochanteric fracture of left femur, initial encounter for closed fracture (principal); E87.1 Hypo-osmolality and hyponatremia; I10 Essential (primary) hypertension; J43.9 Emphysema, unspecified; E78.5 Hyperlipidemia, unspecified; W01.0XXA Fall on same level from slipping, tripping and stumbling without subsequent striking against object, initial encounter; Y92.007 Garden or yard of unspecified non-institutional (private) residence as the place of occurrence of the external cause; D69.6 Thrombocytopenia, unspecified; Z87.891 Personal history of nicotine dependence
CPT/HCPCS: 12345; 36415; 51702; 71045; 73502; 73552; 73630; 76000; 80053; 82977; 85025; 85610; 86850; 86900; 87635; 93005; 96365; 96372; 96375; 97110; 97116; 97161; 97165; 97530; 97535; 99283; C1713; C9113; J0131; J0360; J0690; J1170; J1644; J1650; J2270; J2405; J2704; J2765; J3010; J7030; J7799

== ENCOUNTER → 2020-09-15 09:51 | Outpatient (BNVA) | payer MEDICARE, OTHER, SELFPAY | PROVIDERS: PCP Family Medicine; Visit Provider Orthopaedic Surgery | DX: Z48.89 Encounter for other specified surgical aftercare (principal); Z98.890 Other specified postprocedural states; S72.145A Nondisplaced intertrochanteric fracture of left femur, initial encounter for closed fracture | CPT/HCPCS: 73502 ==

== ENCOUNTER 2020-10-07 14:16 | Outpatient (CLI) | payer MEDICARE, OTHER, SELFPAY ==
--- NOTE | 2020-10-07 14:31 | XR_ITS ---
WS: [id number] WRIST RIGHT TECHNIQUE: 3 views of the right wrist CLINICAL INFORMATION: R WRIST PAIN/PARESTHESIA COMPARISON: None. FINDINGS: Osteopenia. Soft tissue edema. Slightly comminuted impacted fracture involving the distal radius with mild dorsal angulation on the lateral view. Narrowing of the radiocarpal joint. Scaphoid appears nor mal. 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 XR/XR wrist RT min 3V* [id number] IMPRESSION: Slightly comminuted fracture involving the distal radius with intra-articular e xtension and mild dorsal angulation on the lateral view.
== END 2020-10-07 14:17 | disposition home or self-care (01) ==
PROVIDERS: PCP Family Medicine; Visit Provider Family Medicine
DX: R20.9 Unspecified disturbances of skin sensation (principal); S52.501A Unspecified fracture of the lower end of right radius, initial encounter for closed fracture; X58.XXXA Exposure to other specified factors, initial encounter
CPT/HCPCS: 73110

== ENCOUNTER 2020-10-20 10:44 | Outpatient (CLI) | payer MEDICARE, OTHER, SELFPAY ==
--- NOTE | 2020-10-20 10:48 | XR_ITS ---
WS: [id number] DEXA (DUAL ENERGY X-RAY ABSORPTIOMETRY) Bone mineral density was performed using a [employer] machine. HISTORY: OSTEOPOROSIS, FRACTURE OF FEMUR COMPARISON: None available. Lumbar spine BMD (L1-L4): 0.894 g/cm2 T score: -2.4 Z score: -0.3 Total hip BMD: Right: 0.628. T score: -3.0 Z score: -1.1 Left forearm BMD: 0.703 g/cm2. T score: -2.0 Z score: 0.0 10 year probability of a major osteoporotic fracture is 26%. LEFT convex curvature lumbar spine with severe disc space narrowing on the RIGHT at L2-3. XR/XR DEXA axial skeleton* [id number] IMPRESSION: OSTEOPOROSIS based upon the WHO classification for females.
== END 2020-10-20 10:45 | disposition home or self-care (01) ==
LOC: RADWPI 10:46
PROVIDERS: PCP Family Medicine; Visit Provider Nurse Practitioner Family
DX: Z13.820 Encounter for screening for osteoporosis (principal); M81.0 Age-related osteoporosis without current pathological fracture
CPT/HCPCS: 77080

== ENCOUNTER → 2020-11-10 11:07 | Outpatient (BNVA) | payer MEDICARE, OTHER, SELFPAY | PROVIDERS: PCP Family Medicine; Visit Provider Orthopaedic Surgery | DX: Z98.890 Other specified postprocedural states (principal); S52.501D Unspecified fracture of the lower end of right radius, subsequent encounter for closed fracture with routine healing; W19.XXXD Unspecified fall, subsequent encounter | CPT/HCPCS: 73110; 73502 ==

== ENCOUNTER → 2022-08-24 14:36 | Outpatient (BNVA) | payer MEDICARE, OTHER, SELFPAY | PROVIDERS: PCP Family Medicine; Visit Provider Family Medicine | DX: N39.0 Urinary tract infection, site not specified (principal) | CPT/HCPCS: 81000 ==

== ENCOUNTER → 2022-08-26 13:27 | Outpatient (BNVA) | payer MEDICARE, OTHER, SELFPAY | PROVIDERS: PCP Family Medicine; Visit Provider Family Medicine | DX: N39.0 Urinary tract infection, site not specified (principal) | CPT/HCPCS: 87077; 87086; 87184 ==

== ENCOUNTER → 2022-09-22 15:24 | Outpatient (BNVA) | payer MEDICARE, OTHER, SELFPAY | PROVIDERS: PCP Family Medicine; Visit Provider Family Medicine | DX: N39.0 Urinary tract infection, site not specified (principal) | CPT/HCPCS: 81000 ==

== ENCOUNTER → 2022-10-25 12:51 | Outpatient (BNVA) | payer MEDICARE, OTHER, SELFPAY | PROVIDERS: PCP Family Medicine; Visit Provider Family Medicine | DX: I10 Essential (primary) hypertension (principal); N39.0 Urinary tract infection, site not specified; J43.9 Emphysema, unspecified; E78.5 Hyperlipidemia, unspecified | CPT/HCPCS: 80053; 80061; 81000; 87086 ==

== ENCOUNTER 2022-11-03 09:14 | Outpatient (CLI) | payer MEDICARE, OTHER, SELFPAY ==
--- NOTE | 2022-11-03 09:30 | MM_ITS ---
WS: [id number] BILATERAL SCREENING DIGITAL TOMOSYNTHESIS MAMMOGRAM WITH CAD HISTORY: breast cancer screening COMPARISON: 02/01/2010 Bilateral CC and MLO views with tomosynthesis and synthetic mammography submitted. Computer aided det ection analyzed. Breast composition: There are scattered areas of fibroglandular density. No suspicious masses, microc alcifications or architectural distortion. MM/[place] [id number] IMPRESSION: BI-RADS: 1-Negative FOLLOW UP: 1 Year Follow-up
== END 2022-11-03 09:15 | disposition home or self-care (01) ==
LOC: RAD 09:17
PROVIDERS: PCP Family Medicine; Visit Provider Family Medicine
DX: Z12.31 Encounter for screening mammogram for malignant neoplasm of breast (principal)
CPT/HCPCS: 77063; 77067; 80053; 80061; 81000; 87086

== ENCOUNTER → 2022-11-19 14:03 | Outpatient (BNVA) | payer MEDICARE, SELFPAY | PROVIDERS: PCP Family Medicine; Visit Provider Family Medicine | DX: R39.9 Unspecified symptoms and signs involving the genitourinary system (principal) | CPT/HCPCS: 81000 ==

== ENCOUNTER → 2023-01-03 11:48 | Outpatient (BNVA) | payer MEDICARE, OTHER, SELFPAY | PROVIDERS: PCP Family Medicine; Visit Provider Nurse Practitioner | DX: R39.9 Unspecified symptoms and signs involving the genitourinary system (principal) | CPT/HCPCS: 81000; 87086 ==

== ENCOUNTER → 2023-10-12 11:30 | Outpatient (BNVA) | payer MEDICARE, OTHER, SELFPAY | PROVIDERS: PCP Family Medicine; Visit Provider Family Medicine | DX: E78.5 Hyperlipidemia, unspecified (principal); I10 Essential (primary) hypertension; M81.0 Age-related osteoporosis without current pathological fracture | CPT/HCPCS: 80053; 80061; 82306; 84443 ==

== ENCOUNTER → 2023-10-23 08:36 | Outpatient (BNVA) | payer MEDICARE, OTHER, SELFPAY | PROVIDERS: PCP Family Medicine; Visit Provider Family Medicine | DX: E87.1 Hypo-osmolality and hyponatremia (principal) | CPT/HCPCS: 80048 ==

== ENCOUNTER 2023-11-06 09:37 | Outpatient (CLI) | payer MEDICARE, OTHER, SELFPAY ==
--- NOTE | 2023-11-06 09:43 | MM_ITS ---
WS: [email or web address] SCREENING DIGITAL BREAST TOMOSYNTHESIS MAMMOGRAM WITH CAD HISTORY: breast cancer screening COMPARISON: 11/03/2022, 02/01/2010 Bilateral CC and MLO with tomosynthesis and synthetic mammography submitted. Computer aided detection analyzed. Breast composition: There are scattered areas of fibroglandular density. There is a lobulated solid m ass measuring 6 mm against the posterior LEFT chest wall just above the nipple line. This has not bee n included on prior imaging studies. Favor this is probably a lymph node but the margins are very jus t slightly lobulated and irregular. Recommend ultrasound evaluation There is an additional more superior LEFT nodule which does appear to be a lymph node. The remaining breasts are negative. IMPRESSION: MM/[place] [id number] BI-RADS: 0-Incomplete: Need additional imaging evaluation FOLLOW UP: Need Additional Imaging Recommendation: LEFT breast ultrasound, limited. Recommend ultrasound directed to the posterior LEFT chest wall, lateral and just superior to the nipple. Ther e are 2 masses. The more superior mass at the same level is a lymph node. The u ltrasound is directed to the 6 mm nodule just more inferior. This is probably a lymph node also.
== END 2023-11-06 09:38 | disposition home or self-care (01) ==
LOC: RAD 09:37
PROVIDERS: PCP Family Medicine; Visit Provider Family Medicine
DX: Z12.31 Encounter for screening mammogram for malignant neoplasm of breast (principal); R92.323 Mammographic fibroglandular density, bilateral breasts; R22.2 Localized swelling, mass and lump, trunk
CPT/HCPCS: 77063; 77067

== ENCOUNTER 2023-11-07 13:26 | Outpatient (CLI) | payer MEDICARE, OTHER, SELFPAY ==
--- NOTE | 2023-11-07 13:45 | US_ITS ---
WS: [email or web address] ULTRASOUND LEFT BREAST HISTORY: f/u abnormal mammo COMPARISON: Mammogram 11/06/2023 TECHNIQUE: 2-D and Doppler. The soft tissue masses against chest wall are not identified by ultrasound. Favor these are probably benign lymph nodes. As these have not been identified on prior mammograms consider 6-month LEFT mammo gram follow-up. IMPRESSION: US/US breast LT limited* [id number] BI-RADS: 3-Probably Benign FOLLOW-UP: 6 Month Follow-up Recommend diagnostic LEFT mammogram follow-up in 6 months. Favor these nodules against the chest wall are both benign lymph nodes.
== END 2023-11-07 13:27 | disposition home or self-care (01) ==
LOC: RAD 13:26
PROVIDERS: PCP Family Medicine; Visit Provider Family Medicine
DX: R92.8 Other abnormal and inconclusive findings on diagnostic imaging of breast (principal)
CPT/HCPCS: 76642

== ENCOUNTER → 2023-12-22 12:46 | Outpatient (BNVA) | payer MEDICARE, OTHER, SELFPAY | PROVIDERS: PCP Family Medicine; Visit Provider Family Medicine | DX: R30.0 Dysuria (principal) | CPT/HCPCS: 81000 ==

== ENCOUNTER 2024-05-20 10:18 | Outpatient (CLI) | payer MEDICARE, OTHER, SELFPAY ==
--- NOTE | 2024-05-20 10:19 | MM_ITS ---
WS: [email or web address] DIAGNOSTIC LEFT DIGITAL TOMOSYNTHESIS MAMMOGRAPHY WITH CAD. HISTORY: f/u abnormal lt breast mammo COMPARISON: 11/06/2023, 11/03/2022, Technique: CC, MLO and ML views. Spot compression LEFT MLO. Breast composition: There are scattered areas of fibroglandular density. Soft tissue nodules against the chest wall appear to be lymph nodes. Normal fatty ervin. No increase i n size since the prior study. No additional work-up necessary. The remaining breast is stable. MM/[place] [id number] IMPRESSION: BI-RADS: 2 - Benign. FOLLOW UP: 1 Year Follow-up Return to annual screening mammography.
== END 2024-05-20 10:19 | disposition home or self-care (01) ==
LOC: RAD 10:18
PROVIDERS: PCP Family Medicine; Visit Provider Family Medicine
DX: R92.8 Other abnormal and inconclusive findings on diagnostic imaging of breast (principal); R92.323 Mammographic fibroglandular density, bilateral breasts
CPT/HCPCS: 77061; G0279

== ENCOUNTER → 2024-10-15 15:17 | Outpatient (BNVA) | payer MEDICARE, OTHER, SELFPAY | PROVIDERS: PCP Family Medicine; Visit Provider Family Medicine | DX: I10 Essential (primary) hypertension (principal); E78.5 Hyperlipidemia, unspecified; E87.1 Hypo-osmolality and hyponatremia | CPT/HCPCS: 80053; 80061; 85025 ==

== ENCOUNTER 2024-11-08 09:48 | Outpatient (CLI) | payer MEDICARE, OTHER, SELFPAY ==
--- NOTE | 2024-11-08 09:52 | MM_ITS ---
WS: [email or web address] BILATERAL SCREENING DIGITAL TOMOSYNTHESIS MAMMOGRAM WITH CAD HISTORY: SCREENING COMPARISON: 05/20/2024, 11/06/2023, 11/03/2022 Bilateral CC and MLO views with tomosynthesis and synthetic mammography submitted. Computer aided detection analyzed. Breast composition: There are scattered areas of fibroglandular density. No suspicious masses, microcalcifications or architectural distortion. MM/MM scr BI tomosynthesis [id number] IMPRESSION: BI-RADS: 1 - Negative. FOLLOW UP: 1 Year Follow-up
== END 2024-11-08 09:49 | disposition home or self-care (01) ==
LOC: RAD 09:49
PROVIDERS: PCP Family Medicine; Visit Provider Family Medicine
DX: Z12.31 Encounter for screening mammogram for malignant neoplasm of breast (principal); R92.323 Mammographic fibroglandular density, bilateral breasts
CPT/HCPCS: 77063; 77067